=== PATIENT | male | born 1940 | race American Indian/Alaskan Native ===

== ENCOUNTER 2018-03-01 06:25 | Emergency (ER) | payer MEDICARE, OTHER ==
[~2018-03-01] VITALS: Ht 182.9 cm; Wt 95.2 kg
[~2018-03-01 06:25] MED LIST: AMOX500 PO; ATEN25 PO; ATOR10 PO; AZIT250 PO; BENA20 PO; BP MED; CHOL10002 PO; CHOLESTEROL PILL; COLCRYS0.6 MG PO; COUMADIN; ENAL10 PO; FISH1000 PO; FURO100EL PO; FURO20 PO; Glucosamine &1 EACH PO; LEVSOD100 PO; LEVSOD25 PO; OMEP20ER PO; Prilosec Otc20 MG PO; WARF5 PO
[2018-03-01] MEDS ORDERED: METO100ER PO (06:59)
[2018-03-01] MEDS ORDERED: SPIR25 (07:01)
[2018-03-01] MEDS ORDERED: TORSE20 PO (07:02)
[2018-03-01] MEDS ORDERED: ENTRESTO 49 MG1 EACH (07:03)
[2018-03-01] MEDS ORDERED: WARF5 PO (07:03)
== END 2018-03-01 07:55 | disposition home or self-care (01) ==
LOC: ER 06:25
DX: M25.562 Pain in left knee (principal); I50.9 Heart failure, unspecified; Z88.5 Allergy status to narcotic agent; Z79.899 Other long term (current) drug therapy; Z79.01 Long term (current) use of anticoagulants; Z87.891 Personal history of nicotine dependence
CPT/HCPCS: 73562-LT; 99283-25

== ENCOUNTER 2018-07-08 12:29 | Emergency (ER) | payer MEDICARE, OTHER ==
[~2018-07-08] VITALS: Ht 182.9 cm; Wt 95.2 kg
[~2018-07-08 12:29] MED LIST changes: +ENTRESTO 49 MG1 EACH; +METO100ER PO; +SPIR25; +TORSE20 PO
[2018-07-08] MEDS ORDERED: Norco 5-325 Ta1 EACH PO (13:05)
== END 2018-07-08 13:12 | disposition home or self-care (01) ==
LOC: ER 12:29
DX: M76.52 Patellar tendinitis, left knee (principal); Z88.5 Allergy status to narcotic agent; Z79.899 Other long term (current) drug therapy; Z79.01 Long term (current) use of anticoagulants; I50.9 Heart failure, unspecified; Z87.891 Personal history of nicotine dependence
CPT/HCPCS: 20610; 99283-25; J2920

== ENCOUNTER 2018-08-15 07:35 | Day surgery (SDC) | payer MEDICARE, OTHER ==
[~2018-08-15] VITALS: Ht 180.3 cm; Wt 100.0 kg
[~2018-08-15 07:35] MED LIST changes: +Aspirin EC81 MG PO; -ENTRESTO 49 MG1 EACH; +ENTRESTO 49 MG1 EACH PO; +Norco 5-325 Ta1 EACH PO; +POTA10T PO
[2018-08-15] MEDS ORDERED: Pacerone100 MG PO (08:22)
--- NOTE | 2018-08-15 09:04 | NUR ---
PT POST CARDIOVERSION WITH 200 JOULES, UNCLEAR IF CONVERSION TO SR; HR 40'S. PT IS DROWSY, BUT ANSWERING QUESTIONS APPROPRIATELY. PT DENIES PAIN OR DISCOMFORT POST PROCEDURE.
--- NOTE | 2018-08-15 09:21 | NUR ---
DR BOYLE DISCUSSED PROCEDURE AND PLAN WITH PATIENT. FOLLOW UP EKG SHOWS PT IN SB WITH PACS 40'S. PT CONTINUES TO DENY PAIN OR DISCOMFORT.
== END 2018-08-15 23:10 | disposition home or self-care (01) ==
LOC: MHTC 07:35
PROC: 5A2204Z Restoration of Cardiac Rhythm, Single (ICD-10-PCS; principal; 2018-08-15)
DX: I48.1 Persistent atrial fibrillation (principal); I50.9 Heart failure, unspecified; E78.5 Hyperlipidemia, unspecified; Z79.899 Other long term (current) drug therapy; Z79.01 Long term (current) use of anticoagulants; Z79.82 Long term (current) use of aspirin; Z87.891 Personal history of nicotine dependence; Z88.5 Allergy status to narcotic agent; Z95.2 Presence of prosthetic heart valve
CPT/HCPCS: 92960; 93005; 93010; J2704; J7030

== ENCOUNTER 2019-10-12 20:46 | Emergency (ER) | payer MEDICARE, OTHER ==
[~2019-10-12] VITALS: Ht 182.9 cm; Wt 95.2 kg
[~2019-10-12 20:46] MED LIST changes: +CEFP200 PO; +Pacerone100 MG PO
[2019-10-12] MEDS ORDERED: CEFP200 PO (22:07)
[2019-10-12] MEDS ORDERED: COLCRYS0.6 M1 PO (22:07)
== END 2019-10-12 22:48 | disposition home or self-care (01) ==
LOC: ER 20:46
DX: M10.9 Gout, unspecified (principal); I50.9 Heart failure, unspecified; Z88.5 Allergy status to narcotic agent; Z79.01 Long term (current) use of anticoagulants; Z79.82 Long term (current) use of aspirin; Z79.899 Other long term (current) drug therapy; Z87.891 Personal history of nicotine dependence
CPT/HCPCS: 99283; A9270

== ENCOUNTER 2020-02-06 06:45 | Emergency (ER) | payer MEDICARE, OTHER ==
[~2020-02-06] VITALS: Ht 182.9 cm; Wt 95.2 kg
[~2020-02-06 06:45] MED LIST changes: +COLCRYS0.6 M1 PO
== END 2020-02-06 07:30 | disposition home or self-care (01) ==
LOC: ER 06:45
DX: M10.9 Gout, unspecified (principal); M17.12 Unilateral primary osteoarthritis, left knee; I50.9 Heart failure, unspecified; Z88.5 Allergy status to narcotic agent; Z79.82 Long term (current) use of aspirin; Z79.899 Other long term (current) drug therapy
CPT/HCPCS: 99283

== ENCOUNTER 2020-02-22 10:12 | Day surgery (SDC) | payer MEDICARE, OTHER ==
[~2020-02-22] VITALS: Ht 182.9 cm; Wt 95.0 kg
--- NOTE | 2020-02-22 10:39 | NUR ---
02/22/20 1039 Hallie Mansfield 1 TRY RIGHT HAND VALVE 2 TRY RIGHT UPPER ARM BLEW
== END 2020-02-22 11:45 | disposition home or self-care (01) ==
LOC: ORSCSDS 10:12
PROVIDERS: Surgery
PROC: 0DBL8ZX Excision of Transverse Colon, Via Natural or Artificial Opening Endoscopic, Diagnostic (ICD-10-PCS; principal; 2020-02-22 11:15)
DX: Z12.11 Encounter for screening for malignant neoplasm of colon (principal); Z80.0 Family history of malignant neoplasm of digestive organs; D12.3 Benign neoplasm of transverse colon; K57.30 Diverticulosis of large intestine without perforation or abscess without bleeding; I10 Essential (primary) hypertension; E03.9 Hypothyroidism, unspecified; I48.91 Unspecified atrial fibrillation; Z79.01 Long term (current) use of anticoagulants; Z79.82 Long term (current) use of aspirin; Z87.891 Personal history of nicotine dependence; Z79.899 Other long term (current) drug therapy
CPT/HCPCS: 88305; J2704; J7120

== ENCOUNTER 2020-05-23 13:37 | Emergency (ER) | payer MEDICARE, OTHER ==
[~2020-05-23] VITALS: Ht 182.9 cm; Wt 95.2 kg
[2020-05-23 14:29] LABS: BASOPHILS ABSOLUTE AUTO 0.07 K/mm3 (0.00-0.23); BASOPHILS PERCENT AUTO 1 % (0-2); EOSINOPHILS ABSOLUTE AUTO 0.27 K/mm3 (0.00-0.68); EOSINOPHILS PERCENT AUTO 5 % (0-6); Hematocrit 30.4 % (37.0-53.0); Hemoglobin 8.7 g/dL (13.5-17.5); IMMATURE GRAN ABSOLUTE AUTO 0.01 K/mm3 (0.00-0.10); IMMATURE GRAN PERCENT AUTO 0 % (0-1); LYMPHOCYTES PERCENT AUTO 36 % (21-46); MONOCYTES ABSOLUTE AUTO 0.56 K/mm3 (0.16-1.47); MONOCYTES PERCENT AUTO 10 % (4-13); Mean Corpuscular HGB 20.2 pg (26.0-34.0); Mean Corpuscular HGB Conc 28.6 g/dL (31.5-36.5); Mean Corpuscular Volume 71 fL (80-100); Mean Platelet Volume 10.1 fL (9.1-12.4); NEUTROPHILS ABSOLUTE AUTO 2.86 K/mm3 (1.96-9.15); NEUTROPHILS PERCENT AUTO 49 % (41-73); Platelet Count 244 K/mm3 (150-400); RDW Coefficient Variation 18.3 % (11.7-14.2); RDW Standard Deviation 44.7 fL (35.1-46.3); Red Blood Cell Count 4.31 M/mm3 (4.30-5.90); White Blood Cell Count 5.87 K/mm3 (4.00-11.30)
[2020-05-23 14:59] LABS: Alanine Aminotransfer (ALT/SGP 22 U/L (12-78); Alk Phos 73 U/L (50-136); Anion Gap 9 mmol/L (6-16); Aspartate Aminotrans (AST/SGOT 14 U/L (12-37); Bilirubin, Total 0.4 mg/dL (0.1-1.0); Blood Urea Nitrogen 20 mg/dL (8-24); Bun/Creatinine Ratio 13.9 (12.0-20.0); CO2, Blood 26 mmol/L (21-32); Calcium, Blood 8.8 mg/dL (8.5-10.1); Chloride, Blood 107 mmol/L (98-108); Creatinine, Blood 1.44 mg/dL (0.60-1.20); Globulin, Blood 4.1 g/dL (2.2-4.0); Glomerular Filtration Rate 50 (60-); Glucose, Blood 104 mg/dL (70-99); Potassium, Blood 3.6 mmol/L (3.5-5.5); Sodium, Blood 142 mmol/L (136-145); Total Protein, Blood 8.1 g/dL (6.4-8.2); Troponin I <0.015 ng/mL (0.000-0.040)
== END 2020-05-23 18:15 | disposition home or self-care (01) ==
LOC: ER 13:37
PROVIDERS: Physician Assistant
DX: D64.9 Anemia, unspecified (principal); Z79.899 Other long term (current) drug therapy
CPT/HCPCS: 36415; 71046; 80053; 82272; 84484; 85025; 93005; 93010; 99283-25

== ENCOUNTER 2020-06-18 13:38 | Day surgery (SDC) | payer MEDICARE, OTHER ==
[~2020-06-18] VITALS: Ht 182.9 cm; Wt 93.4 kg
== END 2020-06-18 15:53 | disposition home or self-care (01) ==
LOC: ORSCSDS 13:38
PROVIDERS: Surgery
PROC: 0DB48ZX Excision of Esophagogastric Junction, Via Natural or Artificial Opening Endoscopic, Diagnostic (ICD-10-PCS; principal; 2020-06-18 14:45)
PROC: 0DB68ZX Excision of Stomach, Via Natural or Artificial Opening Endoscopic, Diagnostic (ICD-10-PCS; principal; 2020-06-18 14:45)
DX: D64.9 Anemia, unspecified (principal); Z87.19 Personal history of other diseases of the digestive system; K22.70 Barrett's esophagus without dysplasia; K44.9 Diaphragmatic hernia without obstruction or gangrene; I10 Essential (primary) hypertension; E03.9 Hypothyroidism, unspecified; I48.91 Unspecified atrial fibrillation; Z79.82 Long term (current) use of aspirin; Z79.899 Other long term (current) drug therapy
CPT/HCPCS: 88305; 88342; J2704; J7120

== ENCOUNTER 2020-09-05 05:52 | Emergency (ER) | payer MEDICARE, OTHER ==
[~2020-09-05] VITALS: Ht 182.9 cm; Wt 90.7 kg
[2020-09-05] MEDS ORDERED: TAMSULOSIN HCL0.4 M1 PO (06:44)
[2020-09-05] MEDS ORDERED: ALLOPURINOL100 M1 PO (06:45)
[2020-09-05] MEDS ORDERED: LOSA50 PO (06:45)
[2020-09-05] MEDS ORDERED: KLOR-CON 1010 ME3 PO (06:46)
[2020-09-05] MEDS ORDERED: FERROUS GLUCON324 M7 PO (06:46)
[2020-09-05 07:47] LABS: BASOPHILS ABSOLUTE AUTO 0.07 K/mm3 (0.00-0.23); BASOPHILS PERCENT AUTO 1 % (0-2); EOSINOPHILS ABSOLUTE AUTO 0.11 K/mm3 (0.00-0.68); EOSINOPHILS PERCENT AUTO 1 % (0-6); Hematocrit 41.3 % (37.0-53.0); Hemoglobin 12.8 g/dL (13.5-17.5); IMMATURE GRAN ABSOLUTE AUTO 0.03 K/mm3 (0.00-0.10); IMMATURE GRAN PERCENT AUTO 0 % (0-1); LYMPHOCYTES ABSOLUTE AUTO 2.04 K/mm3 (0.84-5.20); LYMPHOCYTES PERCENT AUTO 24 % (21-46); MONOCYTES ABSOLUTE AUTO 1.19 K/mm3 (0.16-1.47); MONOCYTES PERCENT AUTO 14 % (4-13); Mean Corpuscular HGB 26.2 pg (26.0-34.0); Mean Corpuscular Volume 85 fL (80-100); Mean Platelet Volume 10.5 fL (9.1-12.4); NEUTROPHILS ABSOLUTE AUTO 5.06 K/mm3 (1.96-9.15); NEUTROPHILS PERCENT AUTO 60 % (41-73); Platelet Count 153 K/mm3 (150-400); RDW Coefficient Variation 17.2 % (11.7-14.2); RDW Standard Deviation 53.4 fL (35.1-46.3); Red Blood Cell Count 4.89 M/mm3 (4.30-5.90)
[2020-09-05 08:16] LABS: Albumin, Blood 3.8 g/dL (3.4-5.0); Albumin/Globulin Ratio 0.8 (0.8-1.8); Bilirubin, Total 0.7 mg/dL (0.1-1.0); Bun/Creatinine Ratio 10.5 (12.0-20.0); Calcium, Blood 9.3 mg/dL (8.5-10.1); Creatinine, Blood 1.33 mg/dL (0.60-1.20); Globulin, Blood 4.5 g/dL (2.2-4.0); Potassium, Blood 4.2 mmol/L (3.5-5.5); Total Protein, Blood 8.3 g/dL (6.4-8.2); Uric Acid, Blood 8.1 mg/dL (3.5-7.2)
[2020-09-05] MEDS ORDERED: Norco 5-325 Ta1 EACH PO (08:51)
== END 2020-09-05 09:15 | disposition home or self-care (01) ==
LOC: ER 05:52
PROVIDERS: Emergency Medicine
DX: M10.9 Gout, unspecified (principal); Z79.01 Long term (current) use of anticoagulants; Z79.82 Long term (current) use of aspirin; Z79.899 Other long term (current) drug therapy
CPT/HCPCS: 36415; 80053; 84550; 85025; 99283; J1100

== ENCOUNTER → 2022-04-15 | Emergency (ER) | payer MEDICARE, OTHER ==
[~2022-04-15] VITALS: Ht 182.9 cm; Wt 90.7 kg
[~2022-04-15] MED LIST changes: +ALLOPURINOL100 M1 PO; +FERROUS GLUCON324 M7 PO; +KLOR-CON 1010 ME3 PO; +LOSA50 PO; +TAMSULOSIN HCL0.4 M1 PO
== END ==
LOC: ER 09:47
DX: R04.0 Epistaxis (principal); I50.9 Heart failure, unspecified; Z46.89 Encounter for fitting and adjustment of other specified devices; Z88.5 Allergy status to narcotic agent; Z79.899 Other long term (current) drug therapy; Z79.01 Long term (current) use of anticoagulants; Z79.890 Hormone replacement therapy; Z79.82 Long term (current) use of aspirin; Z95.1 Presence of aortocoronary bypass graft
CPT/HCPCS: 99282

== ENCOUNTER 2023-12-02 20:25 | Observation (INO) | payer MEDICARE, OTHER ==
[~2023-12-02] VITALS: Ht 182.9 cm; Wt 90.5 kg
[~2023-12-02 20:25] MED LIST changes: -ALLOPURINOL100 M1 PO; -FERROUS GLUCON324 M7 PO; -LOSA50 PO; -Prilosec Otc20 MG PO; -SPIR25
[2023-12-02 20:47] LABS: BASOPHILS ABSOLUTE AUTO 0.08 K/mm3 (0.00-0.23); BASOPHILS PERCENT AUTO 1 % (0-2); EOSINOPHILS PERCENT AUTO 2 % (0-6); Hematocrit 42.4 % (37.0-53.0); Hemoglobin 13.9 g/dL (13.5-17.5); IMMATURE GRAN PERCENT AUTO 1 % (0-1); LYMPHOCYTES ABSOLUTE AUTO 3.44 K/mm3 (0.84-5.20); LYMPHOCYTES PERCENT AUTO 35 % (21-46); MONOCYTES ABSOLUTE AUTO 0.92 K/mm3 (0.16-1.47); MONOCYTES PERCENT AUTO 9 % (4-13); Mean Corpuscular HGB 29.2 pg (26.0-34.0); Mean Corpuscular HGB Conc 32.8 g/dL (31.5-36.5); Mean Corpuscular Volume 89 fL (80-100); Mean Platelet Volume 10.5 fL (9.1-12.4); NEUTROPHILS ABSOLUTE AUTO 5.01 K/mm3 (1.96-9.15); NEUTROPHILS PERCENT AUTO 51 % (41-73); Platelet Count 188 K/mm3 (150-400); RDW Coefficient Variation 15.7 % (11.7-14.2); RDW Standard Deviation 51.1 fL (35.1-46.3); Red Blood Cell Count 4.76 M/mm3 (4.30-5.90); White Blood Cell Count 9.75 K/mm3 (4.00-11.30)
[2023-12-02 21:11] LABS: Albumin, Blood 4.1 g/dL (3.4-5.0); Albumin/Globulin Ratio 1.1 (0.8-1.8); Bilirubin, Total 0.9 mg/dL (0.1-1.0); Bun/Creatinine Ratio 10.8 (12.0-20.0); Calcium, Blood 9.4 mg/dL (8.5-10.1); Creatinine, Blood 1.3 mg/dL (0.60-1.20); Globulin, Blood 3.7 g/dL (2.2-4.0); Potassium, Blood 3.6 mmol/L (3.5-5.5); Total Protein, Blood 7.8 g/dL (6.4-8.2)
[2023-12-03] MEDS ORDERED: FLU VACC TS2024-25(6MOS UP)/PF 45 MCG/0.5 ML SYRINGE IM ONE (00:05)
[2023-12-03] MEDS ORDERED: Potassium Chloride 10 Meq Tablet SA PO SCH (04:00)
[2023-12-03 05:45] LABS: BASOPHILS ABSOLUTE AUTO 0.05 K/mm3 (0.00-0.23); BASOPHILS PERCENT AUTO 1 % (0-2); EOSINOPHILS ABSOLUTE AUTO 0.13 K/mm3 (0.00-0.68); EOSINOPHILS PERCENT AUTO 2 % (0-6); Hematocrit 38.9 % (37.0-53.0); Hemoglobin 12.9 g/dL (13.5-17.5); IMMATURE GRAN ABSOLUTE AUTO 0.02 K/mm3 (0.00-0.10); IMMATURE GRAN PERCENT AUTO 0 % (0-1); LYMPHOCYTES ABSOLUTE AUTO 2.19 K/mm3 (0.84-5.20); LYMPHOCYTES PERCENT AUTO 28 % (21-46); MONOCYTES ABSOLUTE AUTO 0.84 K/mm3 (0.16-1.47); MONOCYTES PERCENT AUTO 11 % (4-13); Mean Corpuscular HGB 29.5 pg (26.0-34.0); Mean Corpuscular HGB Conc 33.2 g/dL (31.5-36.5); Mean Corpuscular Volume 89 fL (80-100); Mean Platelet Volume 10.8 fL (9.1-12.4); NEUTROPHILS ABSOLUTE AUTO 4.47 K/mm3 (1.96-9.15); NEUTROPHILS PERCENT AUTO 58 % (41-73); Platelet Count 171 K/mm3 (150-400); RDW Coefficient Variation 15.8 % (11.7-14.2); RDW Standard Deviation 51.7 fL (35.1-46.3); Red Blood Cell Count 4.37 M/mm3 (4.30-5.90)
[2023-12-03 06:08] LABS: Albumin, Blood 3.6 g/dL (3.4-5.0); Albumin/Globulin Ratio 1.1 (0.8-1.8); Bun/Creatinine Ratio 12.6 (12.0-20.0); Calcium, Blood 9.2 mg/dL (8.5-10.1); Creatinine, Blood 1.11 mg/dL (0.60-1.20); Globulin, Blood 3.3 g/dL (2.2-4.0); Potassium, Blood 3.7 mmol/L (3.5-5.5); Total Protein, Blood 6.9 g/dL (6.4-8.2)
[2023-12-03 06:20] LABS: International Normalized Ratio 1.91; Prothrombin Time Results 19.5 Sec (9.7-11.5)
[2023-12-03] MEDS ORDERED: Torsemide 20 MG TAB PO SCH (09:00)
[2023-12-03] MEDS ORDERED: Allopurinol 100 MG Tab PO SCH (09:00)
[2023-12-03] MEDS ORDERED: Ferrous Gluconate 325 MG Tablet PO SCH (09:00)
[2023-12-03] MEDS ORDERED: Spironolactone 25 MG Tab PO SCH (09:00)
[2023-12-03] MEDS ORDERED: Digoxin 0.125 MG Tab PO SCH (09:00)
[2023-12-03] MEDS ORDERED: Enoxaparin 40 MG/0.4 ML SYR SC SCH (09:00)
[2023-12-03] MEDS ORDERED: Losartan Potassium 50 MG Tab PO SCH (09:00)
[2023-12-03] MEDS ORDERED: Tamsulosin HCl 0.4 MG Cap PO SCH (09:00)
[2023-12-03] MEDS ORDERED: Levothyroxine Sodium 0.1 MG Tab PO SCH (09:00)
[2023-12-03 11:24] VITALS: BP 133/79
[2023-12-03 15:44] VITALS: BP 114/76
--- NOTE | 2023-12-03 16:15 | NUR ---
SHIFT SUMMARY; PATIENT ER ADMIT EARLY AM. HE IS AO X 4. DENIES ANY CHEST PAIN. DOES COMPLAIN OF RIB PAIN FROM FRACTURE AFTER CPR LAST NOC. HIS LUNGS ARE CLEAR. HE IS NOT FEBRILE. TELE MONITOR SHOWS AFIB AT 72 PER PHOTOGRAPHIC DOUBLE. PATIENT WILL USE FWW TO AMBULATE TO AND FROM BATHROOM HE IS A FALL RISK AFTER HAVING SYNCOPE YESTERDAY. ZIO PATCH WAS ORDERED AND PLACED TODAY FOR DC TOMORROW. WILL REMAINS AVIALBLE FOR THIS PATIENT FOR ANY WANTS OR NEEDS THAT COME UP PRIOR TO SHIFT REPORT AND HAND OFF TO NOC SHIFT RN.
[2023-12-03] MEDS ORDERED: Warfarin Sodium 7.5 MG Tab PO SCH (18:00)
[2023-12-03 19:33] VITALS: BP 128/86
[2023-12-03 19:41] VITALS: BP 136/76
[2023-12-04 02:23] VITALS: BP 118/83
[2023-12-04 05:02] LABS: BASOPHILS ABSOLUTE AUTO 0.06 K/mm3 (0.00-0.23); BASOPHILS PERCENT AUTO 1 % (0-2); EOSINOPHILS ABSOLUTE AUTO 0.24 K/mm3 (0.00-0.68); EOSINOPHILS PERCENT AUTO 3 % (0-6); Hematocrit 43.4 % (37.0-53.0); Hemoglobin 14.4 g/dL (13.5-17.5); IMMATURE GRAN ABSOLUTE AUTO 0.02 K/mm3 (0.00-0.10); IMMATURE GRAN PERCENT AUTO 0 % (0-1); LYMPHOCYTES ABSOLUTE AUTO 2.99 K/mm3 (0.84-5.20); LYMPHOCYTES PERCENT AUTO 34 % (21-46); MONOCYTES ABSOLUTE AUTO 0.95 K/mm3 (0.16-1.47); MONOCYTES PERCENT AUTO 11 % (4-13); Mean Corpuscular HGB 29.8 pg (26.0-34.0); Mean Corpuscular HGB Conc 33.2 g/dL (31.5-36.5); Mean Corpuscular Volume 90 fL (80-100); NEUTROPHILS ABSOLUTE AUTO 4.65 K/mm3 (1.96-9.15); NEUTROPHILS PERCENT AUTO 52 % (41-73); Platelet Count 195 K/mm3 (150-400); RDW Coefficient Variation 15.9 % (11.7-14.2); RDW Standard Deviation 51.9 fL (35.1-46.3); Red Blood Cell Count 4.84 M/mm3 (4.30-5.90); White Blood Cell Count 8.91 K/mm3 (4.00-11.30)
[2023-12-04 05:22] LABS: Bun/Creatinine Ratio 12.6 (12.0-20.0); Calcium, Blood 9.3 mg/dL (8.5-10.1); Creatinine, Blood 1.19 mg/dL (0.60-1.20); International Normalized Ratio 1.62; Potassium, Blood 3.9 mmol/L (3.5-5.5); Prothrombin Time Results 16.7 Sec (9.7-11.5)
[2023-12-04] MEDS ORDERED: Levothyroxine Sodium 0.1 MG Tab PO SCH (06:00)
[2023-12-04 07:42] VITALS: BP 119/85
--- NOTE | 2023-12-04 07:44 | NUR ---
A04 PT S/O PAIN TO L STERNAL AND RIB R/T TO CPR, REFUSES PAIN MEDICATION EXPLAINS HIS PAIN IS A WAY OF LETTING HIM KNOW WHEN TO NOT DO TO MUCH WHILE MOVING, IND BUT IS SB A FOR SAFETY, XYO PATCH AFIB 70S, FALL PRECAUTIONS IN PLACE, CALL LIGHT WN REACH.
--- NOTE | 2023-12-04 11:54 | NUR ---
DISCHARGE REIVEWED BY PT. PT VERBALIZED UNDERSTANDING MEDS AND INST. TELE AND IV REMOVED BY AIDE. PT WHEELED TO DOOR AT 1200
[2023-12-13] MEDS ORDERED: SPIR25 (10:43)
== END 2023-12-04 12:07 | disposition home or self-care (01) ==
LOC: ER 20:25 → ERHOLD 20:26 → MEDS 20:26
PROVIDERS: Internal Medicine; Student in an Organized Health Care Education/Training Program; ADMIT Student in an Organized Health Care Education/Training Program
DX: R55 Syncope and collapse (principal); I48.20 Chronic atrial fibrillation, unspecified; E03.9 Hypothyroidism, unspecified; I11.0 Hypertensive heart disease with heart failure; I50.9 Heart failure, unspecified; M10.9 Gout, unspecified; J98.8 Other specified respiratory disorders; Z79.01 Long term (current) use of anticoagulants; Z88.5 Allergy status to narcotic agent; Z87.891 Personal history of nicotine dependence; Z79.899 Other long term (current) drug therapy
CPT/HCPCS: 36415; 71046; 80048; 80053; 83735; 84484; 85025; 85610; 93005; 93010; 93246; 96372; 99285-25; A9270; G0378; J1650

== ENCOUNTER 2023-12-10 15:06 | Inpatient (IN) | payer MEDICARE, OTHER ==
[~2023-12-10] VITALS: Ht 188 cm; Wt 90.8 kg
[2023-12-10 15:58] LABS: BASOPHILS ABSOLUTE AUTO 0.09 K/mm3 (0.00-0.23); BASOPHILS PERCENT AUTO 1 % (0-2); EOSINOPHILS ABSOLUTE AUTO 0.37 K/mm3 (0.00-0.68); EOSINOPHILS PERCENT AUTO 4 % (0-6); Hematocrit 42.7 % (37.0-53.0); Hemoglobin 14.6 g/dL (13.5-17.5); IMMATURE GRAN ABSOLUTE AUTO 0.07 K/mm3 (0.00-0.10); IMMATURE GRAN PERCENT AUTO 1 % (0-1); LYMPHOCYTES ABSOLUTE AUTO 4.04 K/mm3 (0.84-5.20); LYMPHOCYTES PERCENT AUTO 42 % (21-46); MONOCYTES ABSOLUTE AUTO 0.83 K/mm3 (0.16-1.47); MONOCYTES PERCENT AUTO 9 % (4-13); Mean Corpuscular HGB 30.2 pg (26.0-34.0); Mean Corpuscular HGB Conc 34.2 g/dL (31.5-36.5); Mean Corpuscular Volume 88 fL (80-100); NEUTROPHILS PERCENT AUTO 44 % (41-73); RDW Coefficient Variation 15.2 % (11.7-14.2); RDW Standard Deviation 49.4 fL (35.1-46.3); Red Blood Cell Count 4.83 M/mm3 (4.30-5.90)
[2023-12-10 16:04] LABS: Albumin, Blood 3.7 g/dL (3.4-5.0); Albumin/Globulin Ratio 0.9 (0.8-1.8); Bilirubin, Total 0.5 mg/dL (0.1-1.0); Bun/Creatinine Ratio 10.3 (12.0-20.0); Creatinine, Blood 0.97 mg/dL (0.60-1.20); Potassium, Blood 3.2 mmol/L (3.5-5.5); Total Protein, Blood 7.7 g/dL (6.4-8.2)
[2023-12-10 16:15] LABS: Mean Platelet Volume 10.6 fL (9.1-12.4); Platelet Count 218 K/mm3 (150-400)
[2023-12-10] MEDS ORDERED: Ondansetron HCl 2 MG / ML 2ML Vial IV ONE (16:35)
[2023-12-10] MEDS ORDERED: FLU VACC TS2024-25(6MOS UP)/PF 45 MCG/0.5 ML SYRINGE IM SCH (18:05)
[2023-12-10] MEDS ORDERED: Ondansetron HCl 2 MG / ML 2ML Vial IV PRN (18:05)
[2023-12-10] MEDS ORDERED: Potassium Chloride 20 MEQ TabCR PO ONE (19:00)
[2023-12-10 19:06] LABS: Digoxin (Lanoxin) 0.61 ug/mL (0.80-2.00)
[2023-12-10 20:58] LABS: International Normalized Ratio 2.33; Prothrombin Time Results 23.4 Sec (9.7-11.5)
[2023-12-10] MEDS ORDERED: Torsemide 20 MG TAB PO SCH (21:00)
[2023-12-10 21:36] VITALS: BP 122/80
--- NOTE | 2023-12-11 00:40 | NUR ---
ER CALLED RICHARDRT TO ME AT 2130 AND PT WAS BROUGHT UP TO ROOM 305. PT WAS ORIENTED TO ROOM AND STAFF. PT ALERT ORIENTED VERBALIZES NEEDS APPROPRIATELY. C/O BILAT RIB PAIN R/T CPR GIVEN ABOUT A WEEK AGO WHEN HE WENT INTO CARDIAC ARREST. HE I ON TELEMETRY IN AFIB WITH A RATE OF 77. NO C/O CHEST PAIN OR DIZZINESS ON ARRIVAL FROM ER. WAS ABLE TO AMBULATE TO THE BATHROOM WITH NO C/O DIZZINESS. VSS AT THIS TIME ON RA. ER CALLED AND SAID THAT HIS TROP WAS [address] AND CARDIOLOGISTS ARE AWARE.
--- NOTE | 2023-12-11 03:26 | NUR ---
SHIFT SUMMARY PT ALERT ORIENTED VERBALIZE NEEDS AND CALLS APPROPRIATELY. C/O BILAT RIB PAIN R/T CPR THAT WAS DONE A WEEK AGO WHEN HE WENT INTO CARDIAC ARREST. NO C/O NAUSEA OR DIZZINESS THIS SHIFT. AMBULATES WITH SBA TO THEW BATHROOM. VSS ON RA. REMAINS ON TELEMETRY IN AFIB WITH A RATE OF 77. NO C/O CHEST PAIN. HAS A ZIO PATCH TO HER MID CHEST. THE IS SUPPOSED TO BRING THE BOX IN IN THE AM TO SEND IT OFF. HIS TROPS WERE ELEVATED AT 179 AND 211. IS AWARE. SECURITY LEAD HAS BEEN CONSULTED. LABS TO BE DONE IN THE AM. PT RESTING IN BED AT THIS TIME.
[2023-12-11 05:51] LABS: International Normalized Ratio 2.24; Prothrombin Time Results 22.6 Sec (9.7-11.5)
[2023-12-11] MEDS ORDERED: Levothyroxine Sodium 0.1 MG Tab PO SCH (06:00)
[2023-12-11 06:20] LABS: Bun/Creatinine Ratio 13.5 (12.0-20.0); Calcium, Blood 9.5 mg/dL (8.5-10.1); Creatinine, Blood 1.04 mg/dL (0.60-1.20); Magnesium, Blood 1.9 mg/dL (1.6-2.4); Potassium, Blood 3.7 mmol/L (3.5-5.5)
[2023-12-11 07:31] VITALS: BP 108/74
[2023-12-11] MEDS ORDERED: Tamsulosin HCl 0.4 MG Cap PO SCH (09:00)
[2023-12-11] MEDS ORDERED: Losartan Potassium 50 MG Tab PO SCH (09:00)
[2023-12-11] MEDS ORDERED: Spironolactone 25 MG Tab PO SCH (09:00)
--- NOTE | 2023-12-11 09:35 | NUR ---
DR. BOYLE TO BEDSIDE: ZIO PATCH REMOVED AND SENT HOME WITH TO MAIL TODAY OUTGOING MAIL IS NOT PROCESSED IN THE HOSPITAL ON WEEKENDS. DR BOYLE RECOMMENDING ANGIOGRAM: PARQ AND CONSENT SIGNED BY PATIENT, PROVIDER AND THIS RN.
[2023-12-11] MEDS ORDERED: Aspirin 81 MG Chew PO SCH (10:00)
[2023-12-11] MEDS ORDERED: Atorvastatin 40 MG Tab PO SCH (10:00)
[2023-12-11] MEDS ORDERED: Empagliflozin 10 MG TAB PO SCH (11:00)
[2023-12-11 15:32] VITALS: BP 116/70
--- NOTE | 2023-12-11 16:56 | NUR ---
PATIENT'S BROUGHT IN COPY OF PATIENT'S POLST FORM THAT STATES THE FOLLOWING: DNR LIMITED ADDITIONAL INTERVENTIOSN - NO INTUBATION. COPY IN CHART.
[2023-12-11 20:00] VITALS: BP 113/80
[2023-12-11] MEDS ORDERED: Losartan Potassium 25 MG Tab PO SCH (21:00)
[2023-12-12] VITALS (10 sets, daily range): BP systolic 100–123; BP diastolic 66–85
--- NOTE | 2023-12-12 04:16 | NUR ---
SHIFT SUMMARY PT ALERT ORIENTED VERBALIZES NEEDS WELL. GETS UP AD NICOLE IN HIS ROOM AND USES THE BATHROOM. NO C/OI PAIN THIS SHIFT. VSS ON RA SATTING AT 94%. NO EPISODES OF C/O DIZZINESS. Labs to be done this am and depending on what the inr is hes scheduled for a angiogram. REMAINS ON TELEMETRY AT A FIB AT A RATE OF 84. HES RESTING IN BED AT THIS TIME
[2023-12-12 05:08] LABS: International Normalized Ratio 1.88; Prothrombin Time Results 19.2 Sec (9.7-11.5)
[2023-12-12 05:26] LABS: Magnesium, Blood 2.2 mg/dL (1.6-2.4)
[2023-12-12 05:27] LABS: Bun/Creatinine Ratio 15.8 (12.0-20.0); Calcium, Blood 9.4 mg/dL (8.5-10.1); Creatinine, Blood 1.2 mg/dL (0.60-1.20); Potassium, Blood 3.8 mmol/L (3.5-5.5)
[2023-12-12] MEDS ORDERED: Pantoprazole Sodium 20 MG Tab PO SCH (06:00)
[2023-12-12] MEDS ORDERED: NS 1,000 ML IV ONE ×2 (08:04→08:07)
[2023-12-12] MEDS ORDERED: Midazolam HCl 1MG / ML 2ML Vial ONE (08:04)
[2023-12-12] MEDS ORDERED: FentaNYL Citrate 50 MCG/ML 2 ML Injection ONE (08:04)
[2023-12-12] MEDS ORDERED: Verapamil HCL 2.5 MG/ML 2ML Injection ONE (08:06)
[2023-12-12] MEDS ORDERED: Nitroglycerin 2 MG/20 ML BTL ONE (08:07)
[2023-12-12] MEDS ORDERED: NS 250 ML IV ONE (08:07)
[2023-12-12] MEDS ORDERED: Heparin Sodium 1000 Units/ML 10ML MDV ONE (08:07)
[2023-12-12] MEDS ORDERED: Aspirin 81 MG Chew ONE (08:51)
--- NOTE | 2023-12-12 10:15 | NUR ---
PATIENT TO ENGINEERING JOB TITLES AT 0830 THEN TRANSFERRED TO PCU.
--- NOTE | 2023-12-12 16:01 | NUR ---
TR BAND REMOVED AND DRIED BLOOD CLEANED WITH CHLOREHEXEDINE, CLEAR TEGADERM PLACED WITH WRIST BOARD BACK ON
--- NOTE | 2023-12-12 16:34 | NUR ---
END OF SHIFT SUMMARY: PT IS ALERT AND ORIENTED X 4 AND COOPERATIVE IN HIS CARE. IS SATTING >92% ON ROOM AIR. ON TELE SHOWING AFIB WITH RATE IN 60'S. BLOOD PRESSURE STABLE.HAD AN ANGIOGRAM TODAY WITH NO INTERVENTIONS. RIGHT RADIAL ACCESS SITE IS CLEAN/DRY AND NO BLEEDING OR HEMATOMA AT SITE. CLEAR TEGADERM IS IN PLACE. COUMADIN WAS RESTARTED AT 1800 AND LABS ARE ALREADY SCHEDULED FOR LEVELS. AT BEDSIDE. HIS LEFT FOREARM IV DRESSING WAS REPLACED HE WAS LEAKING BLOOD, WRAPPED WITH COBAND AND HAS NOT LEAKED SINCE. SCD'S WERE PLACED PER EMAR. PT HAS A POLST FORM IN CHART THAT IS NEEDING TO BE SIGNED BY DOCTOR IN AM. WILL REPORT TO ONCOMING WOOD TILE INSTALLER RN.
[2023-12-12] MEDS ORDERED: Warfarin Sodium 7.5 MG Tab PO SCH (18:00)
[2023-12-13 00:05] VITALS: BP 117/75
[2023-12-13 03:57] LABS: BASOPHILS ABSOLUTE AUTO 0.08 K/mm3 (0.00-0.23); BASOPHILS PERCENT AUTO 1 % (0-2); EOSINOPHILS ABSOLUTE AUTO 0.41 K/mm3 (0.00-0.68); EOSINOPHILS PERCENT AUTO 5 % (0-6); Hematocrit 41.2 % (37.0-53.0); Hemoglobin 13.7 g/dL (13.5-17.5); IMMATURE GRAN ABSOLUTE AUTO 0.03 K/mm3 (0.00-0.10); IMMATURE GRAN PERCENT AUTO 0 % (0-1); LYMPHOCYTES ABSOLUTE AUTO 2.34 K/mm3 (0.84-5.20); LYMPHOCYTES PERCENT AUTO 31 % (21-46); MONOCYTES PERCENT AUTO 11 % (4-13); Mean Corpuscular HGB 29.8 pg (26.0-34.0); Mean Corpuscular HGB Conc 33.3 g/dL (31.5-36.5); Mean Corpuscular Volume 90 fL (80-100); Mean Platelet Volume 10.4 fL (9.1-12.4); NEUTROPHILS ABSOLUTE AUTO 3.89 K/mm3 (1.96-9.15); NEUTROPHILS PERCENT AUTO 52 % (41-73); Platelet Count 210 K/mm3 (150-400); RDW Coefficient Variation 15.3 % (11.7-14.2); RDW Standard Deviation 49.9 fL (35.1-46.3); Red Blood Cell Count 4.59 M/mm3 (4.30-5.90); White Blood Cell Count 7.55 K/mm3 (4.00-11.30)
[2023-12-13 04:11] LABS: International Normalized Ratio 1.48; Prothrombin Time Results 15.4 Sec (9.7-11.5)
[2023-12-13 04:22] LABS: Bun/Creatinine Ratio 17.2 (12.0-20.0); Calcium, Blood 9.3 mg/dL (8.5-10.1); Creatinine, Blood 1.16 mg/dL (0.60-1.20); Potassium, Blood 3.9 mmol/L (3.5-5.5)
[2023-12-13 04:31] VITALS: BP 109/64
--- NOTE | 2023-12-13 05:38 | NUR ---
SHIFT SUMMARY PT IS A&OX4, PLEASANT AND APPRECIATIVE. VSS ON RA. PT REMAINS IN A-FIB RATES 60-70'S. DENIES PAIN. PT IS USING URINAL INDEPENDENTLY IN BED. VOIDING ADEQUATE AMOUNTS OF CLEAR, LIGHT YELLOW URINE. NO BM THIS SHIFT. PT IS ABLE TO BE INDEPENDENT, ONLY STOOD AT BEDSIDE THIS SHIFT. ACCESS SITE DRESSING TO RIGHT RADIAL IS C/D/I, SOFT TO PALPATE. BED IN LOWEST POSITION, CALL LIGHT WITHIN REACH.
[2023-12-13 07:55] VITALS: BP 124/79
[2023-12-13] MEDS ORDERED: LIPITOR80 MG PO (10:42)
[2023-12-13] MEDS ORDERED: ALLOPURINOL100 M1 PO (10:42)
[2023-12-13] MEDS ORDERED: DIGOX125 MC1 PO (10:42)
[2023-12-13] MEDS ORDERED: JARDIANCE10 MG PO (10:43)
[2023-12-13] MEDS ORDERED: LOSA25 PO (10:43)
[2023-12-13] MEDS ORDERED: FERROUS GLUCON324 M7 PO (10:43)
[2023-12-13] MEDS ORDERED: WARF5 PO (10:43)
[2023-12-13] MEDS ORDERED: TORSE20 PO (10:43)
[2023-12-13] MEDS ORDERED: SPIR25 PO (10:43)
[2023-12-13] MEDS ORDERED: EUTHYROX100 MCG PO (10:43)
--- NOTE | 2023-12-13 11:46 | NUR ---
DISCHARGE SUMMARY: PT ALERT AND ORIENTED X4 AND ACTIVE IN HIS CARE. SATTING >92% ON ROOM AIR. ON TELE SHOWING AFIB WITH RATE IN 70'S. WENT OVER DISCHARGE INFORMATION WITH FERNANDA ORTIZ AND WAS WHEELED OUT VIA WHEELCHAIR WITH ALL OF HIS BELONGIGNS AND HIS FOR HIS RIDE. KNOWS TO NOT USE HIS RIGHT ARM AND MEDICATIONS WERE SENT TO HIS PREFERRED PHARMACY. IV WAS TAKEN OFF AND TELE REMOVED.
[2023-12-13] MEDS ORDERED: Warfarin Sodium 7.5 MG Tab PO SCH (18:00)
[2023-12-23] MEDS ORDERED: AMIODARONE HCL100 M1 PO (14:43)
[2023-12-23] MEDS ORDERED: [UNRECOGNIZED DRUG - OTHER] PO (19:02)
== END 2023-12-13 11:15 | disposition home or self-care (01) | DRG 287 ==
LOC: ER 15:06 → MEDS 15:07 → PCU 12-11 15:41 → MEDS 12-11 15:48 → PCU 12-12 09:48
PROVIDERS: Internal Medicine; Internal Medicine Cardiovascular Disease; Nurse Practitioner Acute Care; Student in an Organized Health Care Education/Training Program; ADMIT Internal Medicine
PROC: B2111ZZ Fluoroscopy of Multiple Coronary Arteries using Low Osmolar Contrast (ICD-10-PCS; principal; 2023-12-12)
PROC: 4A023N7 Measurement of Cardiac Sampling and Pressure, Left Heart, Percutaneous Approach (ICD-10-PCS; 2023-12-12)
DX: I48.19 Other persistent atrial fibrillation (principal); I13.0 Hypertensive heart and chronic kidney disease with heart failure and stage 1 through stage 4 chronic kidney disease, or unspecified chronic kidney disease; Q23.3 Congenital mitral insufficiency; I50.22 Chronic systolic (congestive) heart failure; Q21.10 Atrial septal defect, unspecified; I25.10 Atherosclerotic heart disease of native coronary artery without angina pectoris; I47.10 Supraventricular tachycardia, unspecified; E03.9 Hypothyroidism, unspecified; D50.9 Iron deficiency anemia, unspecified; N40.0 Benign prostatic hyperplasia without lower urinary tract symptoms; I42.8 Other cardiomyopathies; I45.2 Bifascicular block; M10.9 Gout, unspecified; Z90.89 Acquired absence of other organs; Z98.890 Other specified postprocedural states; Z87.891 Personal history of nicotine dependence; Z88.5 Allergy status to narcotic agent; Z79.899 Other long term (current) drug therapy; Z79.890 Hormone replacement therapy; Z79.01 Long term (current) use of anticoagulants; Z95.1 Presence of aortocoronary bypass graft; Z51.81 Encounter for therapeutic drug level monitoring
CPT/HCPCS: 36415; 36416; 71045; 76937; 80048; 80053; 80162; 83735; 83880; 84443; 84484; 85025; 85347; 85610; 93005; 93010; 93454; 96374; 99152; 99153; 99285-25; A9270; C1769; C1887; C1894; C8929; G0378; J1644; J2250; J2405; J2470; J3010; J7030; J7050; Q9957; Q9967

== ENCOUNTER 2025-01-07 09:26 | Emergency (ER) | payer MEDICARE, OTHER ==
[~2025-01-07] VITALS: Ht 182.9 cm; Wt 95.2 kg
[~2025-01-07 09:26] MED LIST changes: +ALLOPURINOL100 M1 PO; +AMIODARONE HCL100 M1 PO; +DIGOX125 MC1 PO; +EUTHYROX100 MCG PO; +FERROUS GLUCON324 M7 PO; +JARDIANCE10 MG PO; +LIPITOR80 MG PO; +LOSA25 PO; +SPIR25 PO; +[UNRECOGNIZED DRUG - OTHER] PO
[2025-01-07 10:45] LABS: BASOPHILS ABSOLUTE AUTO 0.08 K/mm3 (0.00-0.23); BASOPHILS PERCENT AUTO 1 % (0-2); EOSINOPHILS ABSOLUTE AUTO 0.34 K/mm3 (0.00-0.68); EOSINOPHILS PERCENT AUTO 5 % (0-6); Hematocrit 44.8 % (37.0-53.0); Hemoglobin 14.3 g/dL (13.5-17.5); IMMATURE GRAN ABSOLUTE AUTO 0.01 K/mm3 (0.00-0.10); IMMATURE GRAN PERCENT AUTO 0 % (0-1); LYMPHOCYTES ABSOLUTE AUTO 2.65 K/mm3 (0.84-5.20); LYMPHOCYTES PERCENT AUTO 41 % (21-46); MONOCYTES ABSOLUTE AUTO 0.79 K/mm3 (0.16-1.47); MONOCYTES PERCENT AUTO 12 % (4-13); Mean Corpuscular HGB Conc 31.9 g/dL (31.5-36.5); Mean Corpuscular Volume 88 fL (80-100); NEUTROPHILS ABSOLUTE AUTO 2.54 K/mm3 (1.96-9.15); NEUTROPHILS PERCENT AUTO 40 % (41-73); NRBC ABSOLUTE 0.00 K/mm3 (0.00-0.02); NRBC Auto 0.0 /100 WBC (0.0-0.2); Platelet Count 158 K/mm3 (150-400); RDW Coefficient Variation 15.0 % (11.7-14.2); RDW Standard Deviation 48.2 fL (35.1-46.3)
[2025-01-07 11:02] LABS: Prothrombin Time Results 19.4 Sec (9.7-11.5)
[2025-01-07 11:03] LABS: Alanine Aminotransfer (ALT/SGP 24.0 U/L (12-78); Albumin, Blood 4.2 g/dL (3.4-5.0); Albumin/Globulin Ratio 1.1 (0.8-1.8); Anion Gap 9.0 mmol/L (3-11); Aspartate Aminotrans (AST/SGOT 20.0 U/L (12-37); Bilirubin, Total 0.7 mg/dL (0.1-1.0); Blood Urea Nitrogen 10.0 mg/dL (8-24); CO2, Blood 31.0 mmol/L (21-32); Calcium, Blood 9.1 mg/dL (8.5-10.1); Chloride, Blood 102.0 mmol/L (98-108); Creatinine, Blood 1.24 mg/dL (0.60-1.20); Globulin, Blood 3.9 g/dL (2.2-4.0); Glucose, Blood 98.0 mg/dL (70-99); Potassium, Blood 3.3 mmol/L (3.5-5.5); Sodium, Blood 139.0 mmol/L (136-145); Total Protein, Blood 8.1 g/dL (6.4-8.2)
[2025-01-07 13:59] VITALS: BP 112/70
== END 2025-01-07 13:59 | disposition home or self-care (01) ==
LOC: ER 09:26
PROVIDERS: Emergency Medicine
DX: M76.62 Achilles tendinitis, left leg (principal); I50.9 Heart failure, unspecified; I48.91 Unspecified atrial fibrillation; Z87.891 Personal history of nicotine dependence; Z95.1 Presence of aortocoronary bypass graft; Z88.5 Allergy status to narcotic agent; Z79.01 Long term (current) use of anticoagulants; Z79.84 Long term (current) use of oral hypoglycemic drugs; Z79.890 Hormone replacement therapy; Z79.899 Other long term (current) drug therapy
CPT/HCPCS: 73590; 73620; 80053; 85025; 85610; 93971; 99284-25